=== PATIENT | female | born 1930 | race Caucasian/White ===

== ENCOUNTER 2017-04-27 14:09 | Inpatient (IN) | payer MEDICARE ==
--- NOTE | 2017-04-27 14:56 | ED Physician Chart ---
ED Chief Complaint/HPI - Patient Information Date Seen:: 04/27/17 Time Seen:: 14:45 Chief Complaint:: hematuria History of Present Illness:: Patient apparently noted to have hematuria at SNF. Patient is unaware of having hematuria although she is confused. Allergies:: Allergies Allergy/AdvReac Type Severity Reaction Status Date / Time No Known Allergies Allergy Verified 04/27/17 14:35 Vitals:: Vital Signs - 8 hr 04/27/17 14:22 Temp 98.5 F HR 74 RR 16 BP 120/54 O2 Sat % 92 Historian:: Patient Review:: Nurse's Note Reviewed, Transfer documents Reviewed ED Review of Systems - Review of Systems General/Constitutional: No fever, No chills Skin: No skin lesions Head: No headache Eyes: No loss of vision ENT: No earache, No nasal drainage Neck: No neck pain, No swelling Cardio Vascular: No chest pain, No palpitations, No PND, No orthopnea, No edema Pulmonary: No SOB, No cough GI: No nausea, No vomiting, No diarrhea G/U: Hematuria Musculoskeletal: No bone or joint pain, No back pain, No muscle pain Psychiatric: No prior psych history Hematopoietic: No bruising Allergic/Immuno: No urticaria Neurological: No syncope, No focal symptoms ED Past Medical History - Past Medical History Past Medical History: Other (s/p sepsis; Parkinson's disease; atrial fibrillation; decubitis both buttocks; hypothyroidism) Family History: Other (unavailable) Surgical History: other (unavailable) Psychiatricy History: None Medication: Reviewed Family Medical History - Family Member Mother History Unknown: Yes Ethnicity: Non- Living Status: ED Labs/Radiology/EKG Results - Lab Results Results: Laboratory Results - last 24 hr 04/27/17 04/27/17 04/27/17 14:30 14:30 15:15 WBC 7.6 RBC 4.41 Hgb 12.2 Hct 37.1 MCV 84.0 MCH 27.7 MCHC Differential 32.9 RDW 14.3 Plt Count 228 MPV 9.1 Neutrophils % 67.8 Lymphocytes % 22.1 Monocytes % 7.7 Eosinophils % 2.0 Basophils % 0.4 Sodium 134 L Potassium 3.7 Chloride 105 Carbon Dioxide 23.0 Anion Gap 9.7 BUN 26 H Creatinine 0.9 Est GFR ( Amer) TNP Est GFR (Non-Af Amer) TNP BUN/Creatinine Ratio 28.9 Glucose 153 H Calcium 9.3 Urine Source CATH Urine Color RED Urine Clarity BLOODY H Urine pH 7.0 Ur Specific [place] 1.015 Urine Protein >=300 Urine Glucose (UA) NEGATIVE Urine Ketones NEGATIVE Urine Blood LARGE H Urine Nitrate POSITIVE H Urine Bilirubin MODERATE H Urine Urobilinogen 1.0 Ur Leukocyte Esterase LARGE H Urine RBC >100 H Urine WBC >100 H Ur Epithelial Cells NONE SEEN Urine Bacteria MANY ED Septic Shock - . Is Septic Shock (SBP<90, OR Lactate>4 mmol\L) present?: No - <6hrs of presentation: Vital Signs: Vital Signs - 8 hr 04/27/17 14:22 Temp 98.5 F HR 74 RR 16 BP 120/54 O2 Sat % 92 ED Reassessment (Disposition) - Reassessment Reassessment Condition:: Unchanged - Diagnosis Diagnosis:: Urinary tract infection; hematuria - Patient Disposition Admitted to:: Med/Surg Spoke to:: Carroll Swan Admitting Medical Physician:: Carroll Swna Condition at Disposition:: Stable, Unchanged
[2017-04-27 15:02] LABS: % BASOPHILS 0.4 % (0.0-2.0); % LYMPHOCYTES 22.1 % (20.0-50.0); % MONOCYTES 7.7 % (2.0-10.0); % NEUTROPHILS 67.8 % (40.0-80.0); HEMATOCRIT 37.1 % (35.0-45.0); HEMOGLOBIN 12.2 gm/dL (11.7-16.1); MEAN CORPUSCULAR HEMOGLOBIN 27.7 pg (27.0-31.0); MEAN CORPUSCULAR HGB CONC 32.9 pg (28.0-36.0); MEAN PLATELET VOLUME 9.1 fl; NEUTROPHILE ABSOLUTE 5.1 Th/cmm (1.8-8.0); PLATELET COUNT 228 Th/cmm (150-400); RED BLOOD COUNT 4.41 Mil/cmm (3.80-5.20); RED CELL DISTRIBUTION WIDTH 14.3 % (11.5-20.0); WHITE BLOOD COUNT 7.6 Th/cmm (4.8-10.8)
[2017-04-27 15:09] LABS: ANION GAP 9.7 (7.0-16.0); BUN - UREA NITROGEN 26 mg/dL (7-25); BUN/CREATININE RATIO 28.9; CALCIUM SERUM 9.3 mg/dL (8.6-10.3); CHLORIDE 105 mEq/L (98-107); CREATININE - SERUM 0.9 mg/dL (0.6-1.2); GLUCOSE 153 mg/dL (70-105); POTASSIUM SERUM 3.7 mEq/L (3.5-5.1); SODIUM SERUM 134 mEq/L (136-145)
[2017-04-27 15:29] LABS: URINE BILIRUBIN MODERATE (NEGATIVE); URINE BLOOD LARGE (NEGATIVE); URINE GLUCOSE (UA) NEGATIVE (NEGATIVE); URINE KETONE NEGATIVE (NEGATIVE); URINE PROTEIN >=300 mg/dL (NEGATIVE)
[2017-04-27 15:41] LABS: URINE COLOR RED
[2017-04-27 15:42] LABS: URINE RBC >100 /hpf (0-5)
[2017-04-27 15:44] LABS: URINE BACTERIA MANY /hpf (NONE SEEN); URINE EPITHELIAL CELLS NONE SEEN /lpf (FEW); URINE WBC >100 /hpf (0-5)
[2017-04-27] MEDS ORDERED: Sodium Chloride 0.9% 1,000 ML IV ONE (17:02)
[2017-04-27] MEDS ORDERED: cefTRIAXone 1 GM in Sodium Chloride 0.9% 50 ML IV ONE (17:02)
[2017-04-27] MEDS: cefTRIAXone 1 GM in Sodium Chloride 0.9% 50 ML IV SCH (19:30)
[2017-04-27] MEDS: Sodium Chloride 0.9% 1,000 ML IV SCH (22:00)
[2017-04-27 23:38] VITALS: BP 142/79
[2017-04-28 07:31] LABS: % BASOPHILS 0.6 % (0.0-2.0); % EOSINOPHILS 2.1 % (0.0-5.0); % LYMPHOCYTES 16.7 % (20.0-50.0); % NEUTROPHILS 70.6 % (40.0-80.0); HEMATOCRIT 38.5 % (35.0-45.0); HEMOGLOBIN 12.9 gm/dL (11.7-16.1); MEAN CELL VOLUME 83.5 fl (81-100); MEAN CORPUSCULAR HGB CONC 33.6 pg (28.0-36.0); MEAN PLATELET VOLUME 8.4 fl; NEUTROPHILE ABSOLUTE 5.1 Th/cmm (1.8-8.0); PLATELET COUNT 241 Th/cmm (150-400); RED BLOOD COUNT 4.61 Mil/cmm (3.80-5.20); RED CELL DISTRIBUTION WIDTH 14.1 % (11.5-20.0); WHITE BLOOD COUNT 7.2 Th/cmm (4.8-10.8)
[2017-04-28 08:05] LABS: ALB/GLOB RATIO 1.1 (1.0-1.8); ALKALINE PHOSPHATASE 101 U/L (34-104); ANION GAP 9.8 (7.0-16.0); BILIRUBIN,TOTAL 0.6 mg/dL (0.3-1.0); BUN - UREA NITROGEN 19 mg/dL (7-25); BUN/CREATININE RATIO 27.1; CALCIUM SERUM 9.2 mg/dL (8.6-10.3); CHLORIDE 109 mEq/L (98-107); CREATININE - SERUM 0.7 mg/dL (0.6-1.2); GLUCOSE 83 mg/dL (70-105); POTASSIUM SERUM 3.8 mEq/L (3.5-5.1); SGOT 22 U/L (13-39); SGPT/ALT 16 U/L (7-52); SODIUM SERUM 138 mEq/L (136-145)
[2017-04-28] MEDS: Levothyroxine 0.025 Mg Tab PO SCH (08:15)
[2017-04-28] MEDS: Ferrous Sulfate 325 MG TAB PO SCH (08:15)
[2017-04-28] MEDS: Tolterodine Tartrate 4 mg ER Cap PO SCH (08:15)
[2017-04-28] MEDS: Multivitamin w/ Minerals Tab PO SCH (08:15)
--- NOTE | 2017-04-28 08:48 | History and Physical ---
History of Present Illness - HPI Chief Complaint: Hematuria HPI: This is a patient from a SNF and I received a call from SNF stating that patient was having hematuria, order to transfered to ER was given. Vital Signs: Last Vital Signs Temp 98.0 F 04/28/17 04:00 Pulse 62 04/28/17 04:00 Resp 18 04/28/17 04:00 BP 162/71 04/28/17 04:00 Pulse Ox 98 04/28/17 04:00 Past Medical History Cardiovascular: Report: AFIB, CAD Pulmonary: Report: No Pertinent Hx FIELD SERVICES ANALYST: Report: Dementia GI: Report: No Pertinent Hx Psych: Report: Depression, Schizophrenia Musculoskeletal: Report: Muscle Atrophy, Weakness Rheumatologic: Report: No pertinent Hx Infectious Disease: Report: Other (Frequent UTI) Renal/: Report: UTI, Hematuria Endocrine: Report: Hypothyroidism Dermatology: Report: Other (Few decubitus ulcer) - Past Surgical History Past Surgical History: No pertinent Hx Family Medical History - Family Member Mother History Unknown: Yes Ethnicity: Non- Living Status: Social History Smoke: No Alcohol: None Drugs: None Lives: [facility] Domestic Violence: Negative - Medications Home Medications: Home Medication Medication Instructions Recorded Type Acetaminophen [Tylenol 500 mg PO Q6HR PRN 04/27/17 History 650mg/20.3mL Suspension] Apixaban [Eliquis] 2.5 mg PO BID 04/27/17 History Carbidopa/Levodopa 50/200 mg 1 tab PO TID 04/27/17 History [Sinemet CR 50mg-200mg] Cranberry 400 mg PO DAILY 04/27/17 History Dextran 70/Hypromellose/Pf 1 each OP BID PRN 04/27/17 History [Artificial Tears Drops] Docusate Sodium [Colace] 100 mg PO TID 04/27/17 History Duloxetine HCl [Cymbalta] 20 mg PO DAILY 04/27/17 History Ferrous Sulfate [Iron] 1 tab PO DAILY 04/27/17 History Levothyroxine [Synthroid] 25 mcg PO QAM 04/27/17 History Memantine HCl [Namenda Xr] 28 mg PO HS 04/27/17 History Memantine HCl [Namenda Xr] 28 mg PO HS 04/27/17 History Multivitamin-Min/Iron/FA/Vit K 1 tab PO DAILY 04/27/17 History [Multi-Day Plus Minerals Tablet] Pramipexole Di-HCl [Mirapex] 0.125 mg PO HS 04/27/17 History Rivastigmine [Exelon] 13.3 mg TD DAILY 04/27/17 History Tolterodine Tartrate [Detrol LA] 4 mg PO DAILY 04/27/17 History - Allergies Allergies/Adverse Reactions: Allergies Allergy/AdvReac Type Severity Reaction Status Date / Time No Known Allergies Allergy Verified 04/27/17 14:35 Review of Systems - Review of Systems Constitutional: Report: Weakness Eyes: Report: No Significant ENT: Report: No Significant Respiratory: Report: No Significant Cardiovascular: Report: No Significant Gastrointestinal: Report: No Significant Genitourinary: Report: Dysuria, Hematuria Musculoskeletal: Report: No Significant Skin: Report: Other (Decubit ulcers) Neurological: Report: Weakness Physical Exam - Physical Exam HEENT: Report: Ears Nose Throat within normal limits Neck: Report: Within normal limits Cardiovascular Systems: Report: Regular, Rate and Rhythm Respiratory: Report: Breath Sounds are within normal limits Abdomen: Report: Non-tender to palpation Back: Report: Inspection of back is within normal limits. Extremities: Report: Non-tender to palpation., No pedal edema was noted on inspection Skin: Report: Warm, Dry Neuro/Psych: Report: Depressed affect - Lab Results All Lab Results last 24 hours: Laboratory Last Values WBC 7.2 Th/cmm (4.8-10.8) 04/28/17 07:10 RBC 4.61 Mil/cmm (3.80-5.20) 04/28/17 07:10 Hgb 12.9 gm/dL (11.7-16.1) 04/28/17 07:10 Hct 38.5 % (35.0-45.0) 04/28/17 07:10 MCV 83.5 fl (81-100) 04/28/17 07:10 MCH 28.0 pg (27.0-31.0) 04/28/17 07:10 MCHC Differential 33.6 pg (28.0-36.0) 04/28/17 07:10 RDW 14.1 % (11.5-20.0) 04/28/17 07:10 Plt Count 241 Th/cmm (150-400) 04/28/17 07:10 MPV 8.4 fl 04/28/17 07:10 Neutrophils % 70.6 % (40.0-80.0) 04/28/17 07:10 Lymphocytes % 16.7 % (20.0-50.0) L 04/28/17 07:10 Monocytes % 10.0 % (2.0-10.0) 04/28/17 07:10 Eosinophils % 2.1 % (0.0-5.0) 04/28/17 07:10 Basophils % 0.6 % (0.0-2.0) 04/28/17 07:10 Sodium 138 mEq/L (136-145) 04/28/17 07:10 Potassium 3.8 mEq/L (3.5-5.1) 04/28/17 07:10 Chloride 109 mEq/L (98-107) H 04/28/17 07:10 Carbon Dioxide 23.0 mEq/L (21.0-31.0) 04/28/17 07:10 Anion Gap 9.8 (7.0-16.0) 04/28/17 07:10 BUN 19 mg/dL (7-25) 04/28/17 07:10 Creatinine 0.7 mg/dL (0.6-1.2) 04/28/17 07:10 Est GFR ( Amer) TNP 04/28/17 07:10 Est GFR (Non-Af Amer) TNP 04/28/17 07:10 BUN/Creatinine Ratio 27.1 04/28/17 07:10 Glucose 83 mg/dL (70-105) 04/28/17 07:10 Calcium 9.2 mg/dL (8.6-10.3) 04/28/17 07:10 Total Bilirubin 0.6 mg/dL (0.3-1.0) 04/28/17 07:10 AST 22 U/L (13-39) 04/28/17 07:10 ALT 16 U/L (7-52) 04/28/17 07:10 Alkaline Phosphatase 101 U/L (34-104) 04/28/17 07:10 Total Protein 6.7 gm/dL (6.0-8.3) 04/28/17 07:10 Albumin 3.5 gm/dL (3.7-5.3) L 04/28/17 07:10 Globulin 3.2 gm/dL 04/28/17 07:10 Albumin/Globulin Ratio 1.1 (1.0-1.8) 04/28/17 07:10 Urine Source CATH 04/27/17 15:15 Urine Color RED 04/27/17 15:15 Urine Clarity BLOODY (CLEAR) H 04/27/17 15:15 Urine pH 7.0 (4.6 - 8.0) 04/27/17 15:15 Ur Specific [place] 1.015 (1.005-1.030) 04/27/17 15:15 Urine Protein >=300 mg/dL (NEGATIVE) 04/27/17 15:15 Urine Glucose (UA) NEGATIVE mg/dL (NEGATIVE) 04/27/17 15:15 Urine Ketones NEGATIVE mg/dL (NEGATIVE) 04/27/17 15:15 Urine Blood LARGE (NEGATIVE) H 04/27/17 15:15 Urine Nitrate POSITIVE (NEGATIVE) H 04/27/17 15:15 Urine Bilirubin MODERATE (NEGATIVE) H 04/27/17 15:15 Urine Urobilinogen 1.0 E.U./dL (0.2 - 1.0) 04/27/17 15:15 Ur Leukocyte Esterase LARGE (NEGATIVE) H 04/27/17 15:15 Urine RBC >100 /hpf (0-5) H 04/27/17 15:15 Urine WBC >100 /hpf (0-5) H 04/27/17 15:15 Ur Epithelial Cells NONE SEEN /lpf (FEW) 04/27/17 15:15 Urine Bacteria MANY /hpf (NONE SEEN) 04/27/17 15:15 Laboratory Results - last 24 hr 04/28/17 04/28/17 07:10 07:10 WBC 7.2 RBC 4.61 Hgb 12.9 Hct 38.5 MCV 83.5 MCH 28.0 MCHC Differential 33.6 RDW 14.1 Plt Count 241 MPV 8.4 Neutrophils % 70.6 Lymphocytes % 16.7 L Monocytes % 10.0 Eosinophils % 2.1 Basophils % 0.6 Sodium 138 Potassium 3.8 Chloride 109 H Carbon Dioxide 23.0 Anion Gap 9.8 BUN 19 Creatinine 0.7 Est GFR ( Amer) TNP Est GFR (Non-Af Amer) TNP BUN/Creatinine Ratio 27.1 Glucose 83 Calcium 9.2 Total Bilirubin 0.6 AST 22 ALT 16 Alkaline Phosphatase 101 Total Protein 6.7 Albumin 3.5 L Globulin 3.2 Albumin/Globulin Ratio 1.1 - Assessment Assessment: Patient is awake, alert, calm in no acute distress. Dx: UTI, Hematuria, A-fib, Hypothyroidism, Dementia, PMHX of DVT, Parkinson. - Plan Plan: Patient in rocephin, continue with all SNF meds. PT will be requested.
[2017-04-28] MEDS ORDERED: Non-Formulary Item 1 EA (Apixaban [Eliquis] 2.5 MG) PO SCH (09:00)
[2017-04-28] MEDS ORDERED: RIVASTIGMINE 13.3 MG TD SCH (09:00)
[2017-04-28] MEDS: Carbidopa/Levodopa 50/200 mg 1 TER TER PO SCH ×3 (09:00→21:21)
[2017-04-28] MEDS ORDERED: Non-Formulary Item 1 EA (Duloxetine Hcl [Cymbalta] 20 MG) PO SCH (09:00)
[2017-04-28] MEDS: Sodium Chloride 0.9% 1,000 ML IV SCH (10:43)
[2017-04-28] MEDS ORDERED: VTE Chemical Prophylaxis Screen/Admission MC PRN (13:38)
[2017-04-28] MEDS: Enoxaparin 40 mg/0.4 mL 0.4mL Syr SUBQ SCH (16:56)
[2017-04-28] MEDS: cefTRIAXone 1 GM in Sodium Chloride 0.9% 50 ML IV SCH (18:28)
[2017-04-29] MEDS: Sodium Chloride 0.9% 1,000 ML IV SCH ×2 (01:28→13:21)
[2017-04-29 05:45] LABS: % BASOPHILS 0.4 % (0.0-2.0); % EOSINOPHILS 2.6 % (0.0-5.0); % LYMPHOCYTES 20.3 % (20.0-50.0); % MONOCYTES 10.6 % (2.0-10.0); % NEUTROPHILS 66.1 % (40.0-80.0); HEMOGLOBIN 11.5 gm/dL (11.7-16.1); MEAN CELL VOLUME 83.7 fl (81-100); MEAN CORPUSCULAR HEMOGLOBIN 28.5 pg (27.0-31.0); MEAN PLATELET VOLUME 9.1 fl; NEUTROPHILE ABSOLUTE 3.7 Th/cmm (1.8-8.0); PLATELET COUNT 204 Th/cmm (150-400); RED BLOOD COUNT 4.05 Mil/cmm (3.80-5.20); RED CELL DISTRIBUTION WIDTH 13.9 % (11.5-20.0)
[2017-04-29 06:04] LABS: ALB/GLOB RATIO 1.1 (1.0-1.8); ALKALINE PHOSPHATASE 86 U/L (34-104); ANION GAP 8.4 (7.0-16.0); BILIRUBIN,TOTAL 0.5 mg/dL (0.3-1.0); BUN - UREA NITROGEN 16 mg/dL (7-25); CALCIUM SERUM 8.7 mg/dL (8.6-10.3); CARBON DIOXIDE 23.1 mEq/L (21.0-31.0); CHLORIDE 110 mEq/L (98-107); CREATININE - SERUM 0.8 mg/dL (0.6-1.2); GLUCOSE 88 mg/dL (70-105); POTASSIUM SERUM 3.5 mEq/L (3.5-5.1); SGOT 18 U/L (13-39); SGPT/ALT 3 U/L (7-52); SODIUM SERUM 138 mEq/L (136-145)
[2017-04-29 06:05] LABS: HEMATOCRIT 33.9 % (35.0-45.0); WHITE BLOOD COUNT 5.5 Th/cmm (4.8-10.8)
[2017-04-29] MEDS: Rivastigmine 9.5 mg/24 hr Tdm TD SCH (08:55)
[2017-04-29] MEDS: Carbidopa/Levodopa 50/200 mg 1 TER TER PO SCH ×3 (08:56→21:04)
[2017-04-29] MEDS: Levothyroxine 0.025 Mg Tab PO SCH (08:56)
[2017-04-29] MEDS: Tolterodine Tartrate 4 mg ER Cap PO SCH (08:56)
[2017-04-29] MEDS: Ferrous Sulfate 325 MG TAB PO SCH (08:56)
--- NOTE | 2017-04-29 08:56 | General Progress Note ---
Subjective - Review of Systems Service Date: 04/29/17 Subjective: I am better Objective - Results Result Diagrams: 04/29/17 05:10 04/29/17 05:10 Recent Labs: Laboratory Last Values WBC 5.5 Th/cmm (4.8-10.8) D 04/29/17 05:10 RBC 4.05 Mil/cmm (3.80-5.20) 04/29/17 05:10 Hgb 11.5 gm/dL (11.7-16.1) L 04/29/17 05:10 Hct 33.9 % (35.0-45.0) L D 04/29/17 05:10 MCV 83.7 fl (81-100) 04/29/17 05:10 MCH 28.5 pg (27.0-31.0) 04/29/17 05:10 MCHC Differential 34.0 pg (28.0-36.0) 04/29/17 05:10 RDW 13.9 % (11.5-20.0) 04/29/17 05:10 Plt Count 204 Th/cmm (150-400) 04/29/17 05:10 MPV 9.1 fl 04/29/17 05:10 Neutrophils % 66.1 % (40.0-80.0) 04/29/17 05:10 Lymphocytes % 20.3 % (20.0-50.0) 04/29/17 05:10 Monocytes % 10.6 % (2.0-10.0) H 04/29/17 05:10 Eosinophils % 2.6 % (0.0-5.0) 04/29/17 05:10 Basophils % 0.4 % (0.0-2.0) 04/29/17 05:10 Sodium 138 mEq/L (136-145) 04/29/17 05:10 Potassium 3.5 mEq/L (3.5-5.1) 04/29/17 05:10 Chloride 110 mEq/L (98-107) H 04/29/17 05:10 Carbon Dioxide 23.1 mEq/L (21.0-31.0) 04/29/17 05:10 Anion Gap 8.4 (7.0-16.0) 04/29/17 05:10 BUN 16 mg/dL (7-25) 04/29/17 05:10 Creatinine 0.8 mg/dL (0.6-1.2) 04/29/17 05:10 Est GFR ( Amer) TNP 04/29/17 05:10 Est GFR (Non-Af Amer) TNP 04/29/17 05:10 BUN/Creatinine Ratio 20.0 04/29/17 05:10 Glucose 88 mg/dL (70-105) 04/29/17 05:10 Calcium 8.7 mg/dL (8.6-10.3) 04/29/17 05:10 Total Bilirubin 0.5 mg/dL (0.3-1.0) 04/29/17 05:10 AST 18 U/L (13-39) 04/29/17 05:10 ALT 3 U/L (7-52) L 04/29/17 05:10 Alkaline Phosphatase 86 U/L (34-104) 04/29/17 05:10 Total Protein 5.9 gm/dL (6.0-8.3) L 04/29/17 05:10 Albumin 3.1 gm/dL (3.7-5.3) L 04/29/17 05:10 Globulin 2.8 gm/dL 04/29/17 05:10 Albumin/Globulin Ratio 1.1 (1.0-1.8) 04/29/17 05:10 TSH 2.19 uIU/ml (0.34-5.60) 04/28/17 07:10 Urine Source CATH 04/27/17 15:15 Urine Color RED 04/27/17 15:15 Urine Clarity BLOODY (CLEAR) H 04/27/17 15:15 Urine pH 7.0 (4.6 - 8.0) 04/27/17 15:15 Ur Specific [place] 1.015 (1.005-1.030) 04/27/17 15:15 Urine Protein >=300 mg/dL (NEGATIVE) 04/27/17 15:15 Urine Glucose (UA) NEGATIVE mg/dL (NEGATIVE) 04/27/17 15:15 Urine Ketones NEGATIVE mg/dL (NEGATIVE) 04/27/17 15:15 Urine Blood LARGE (NEGATIVE) H 04/27/17 15:15 Urine Nitrate POSITIVE (NEGATIVE) H 04/27/17 15:15 Urine Bilirubin MODERATE (NEGATIVE) H 04/27/17 15:15 Urine Urobilinogen 1.0 E.U./dL (0.2 - 1.0) 04/27/17 15:15 Ur Leukocyte Esterase LARGE (NEGATIVE) H 04/27/17 15:15 Urine RBC >100 /hpf (0-5) H 04/27/17 15:15 Urine WBC >100 /hpf (0-5) H 04/27/17 15:15 Ur Epithelial Cells NONE SEEN /lpf (FEW) 04/27/17 15:15 Urine Bacteria MANY /hpf (NONE SEEN) 04/27/17 15:15 - Physical Exam Vitals and I&O: Vital Signs Temp 96.8 F 04/29/17 08:00 Pulse 68 04/29/17 08:00 Resp 16 04/29/17 08:20 BP 182/93 04/29/17 08:00 Pulse Ox 96 04/29/17 08:00 Intake & Output 04/28/17 04/29/17 04/29/17 18:59 06:59 18:59 Intake Total 1353.75 1120 Output Total 900 550 Balance 453.75 570 Weight (lbs) 70.76 kg 70.76 kg Intake: Intake, IV Amount 953.75 1000 Sodium Chloride 0.9% 1, 953.75 1000 000 ml @ 75 mls/hr IV . [id number] [facility] Rx#:[id number] Oral 400 120 Output: Urine 900 550 Active Medications: Current Medications Acetaminophen (Tylenol 650mg/20.3ml Suspension) 500 mg PO Q6HR PRN PRN Reason: Pain (Mild) Stop: 06/26/17 22:32 Carbidopa/Levodopa (Sinemet Cr 50mg-200mg) 1 ter PO TID [facility] Stop: 06/27/17 08:59 Last Admin: 04/28/17 21:21 Dose: 1 ter Docusate Sodium (Colace) 100 mg PO TID [facility] Stop: 06/27/17 08:59 Last Admin: 04/28/17 21:21 Dose: 100 mg Enoxaparin Sodium (Lovenox) 40 mg SUBQ DAILY [facility] Stop: 06/27/17 16:59 Last Admin: 04/28/17 16:56 Dose: 40 mg Ferrous Sulfate (Iron) 325 mg PO DAILY [facility] Stop: 06/27/17 08:59 Last Admin: 04/28/17 08:15 Dose: 325 mg Ceftriaxone Sodium 1 gm/ (Sodium Chloride) 50 mls @ 100 mls/hr IV Q24HR [facility] Stop: 06/26/17 18:41 Last Admin: 04/28/17 18:28 Dose: 100 mls/hr Sodium Chloride (Nacl 0.9%) 1,000 mls @ 75 mls/hr IV .[id number] [facility] Stop: 06/26/17 18:41 Last Admin: 04/29/17 01:28 Dose: 75 mls/hr Levothyroxine Sodium (Synthroid) 0.025 mg PO QAM [facility] Stop: 06/27/17 08:59 Last Admin: 04/28/17 08:15 Dose: 0.025 mg Memantine (Namenda) 10 mg PO BID [facility] Stop: 06/27/17 08:59 Last Admin: 04/28/17 16:56 Dose: 10 mg Miscellaneous (Vte Chemical Prophylaxis Screen/ Admission) 1 ea [facility] PRN PRN PRN Reason: PROTOCOL Stop: 06/27/17 13:37 Pramipexole Dihydrochloride (Mirapex) 0.125 mg PO HS [facility] Stop: 06/26/17 22:44 Last Admin: 04/28/17 21:21 Dose: 0.125 mg Rivastigmine (Exelon 9.5 Mg/24 Hr Tdm) 1 patch TD DAILY [facility] Stop: 06/28/17 08:59 Tolterodine Tartrate (Detrol La) 4 mg PO DAILY [facility] Stop: 06/27/17 08:59 Last Admin: 04/28/17 08:15 Dose: 4 mg General: Alert, Cooperative, Other (Confused) HEENT: Atraumatic Neck: Supple Cardiovascular: Regular rate Lungs: Clear to auscultation Abdomen: Bowel sounds, Soft Neurological: Other (Unstable gait) Skin: Other (Warm and dry) Psych/Mental Status: Other (Confused) Assessment/Plan - Assessment Assessment: Patient is awake, alert, calm in no acute distress. Urine with some visible blood. Dx: UTI, Hematuria, A-fib, Hypothyroidism, Dementia, PMHX of DVT, Parkinson. - Plan Plan: Patient in rocepcon, continue with all SNF meds. PT will be requested. Awaiting Abdominal US result.
[2017-04-29] MEDS: Multivitamin w/ Minerals Tab PO SCH (08:57)
--- NOTE | 2017-04-29 09:04 | Diagnostic Imaging Report ---
Exam: Ultrasound summation abdomen. HISTORY: Hematuria. Findings Real-time ultrasound summation of abdomen was performed in multiple planes. No prior studies available comparison. The study demonstrates normal echogenicity liver parenchyma There is evidence for multiple calculi in gallbladder consistent with cholelithiasis. The common bile duct measures 5 mm. Pancreas poorly visualized. The kidneys demonstrate no evidence of obstructive uropathy or nephrolithiasis. Right kidney measures 9.0 x 4.5 x 5.2 cm diameter. The left kidney is atrophic measuring 8.3 x 5.4 x 4.9 cm diameter. The spleen is intact. No free fluid is noted. The study is limited due to large amount of intra-abdominal bowel gas. IMPRESSION 1. Cholelithiasis 2. Left renal atrophy 3. No evidence of obstructive uropathy or nephrolithiasis.
[2017-04-29] MEDS: Enoxaparin 40 mg/0.4 mL 0.4mL Syr SUBQ SCH (09:23)
[2017-04-29] MEDS: cefTRIAXone 1 GM in Sodium Chloride 0.9% 50 ML IV SCH (17:50)
[2017-04-30] MEDS: Sodium Chloride 0.9% 1,000 ML IV SCH (02:24)
[2017-04-30 06:08] LABS: % BASOPHILS 0.6 % (0.0-2.0); % EOSINOPHILS 3.1 % (0.0-5.0); % LYMPHOCYTES 16.1 % (20.0-50.0); % MONOCYTES 10.4 % (2.0-10.0); % NEUTROPHILS 69.8 % (40.0-80.0); HEMATOCRIT 33.2 % (35.0-45.0); MEAN CELL VOLUME 84.3 fl (81-100); MEAN CORPUSCULAR HGB CONC 33.2 pg (28.0-36.0); MEAN PLATELET VOLUME 8.4 fl; NEUTROPHILE ABSOLUTE 4.2 Th/cmm (1.8-8.0); PLATELET COUNT 208 Th/cmm (150-400); RED BLOOD COUNT 3.93 Mil/cmm (3.80-5.20); RED CELL DISTRIBUTION WIDTH 14.2 % (11.5-20.0); WHITE BLOOD COUNT 5.9 Th/cmm (4.8-10.8)
[2017-04-30 06:41] LABS: ALB/GLOB RATIO 1.2 (1.0-1.8); ALKALINE PHOSPHATASE 81 U/L (34-104); ANION GAP 8.2 (7.0-16.0); BILIRUBIN,TOTAL 0.4 mg/dL (0.3-1.0); BUN - UREA NITROGEN 16 mg/dL (7-25); CALCIUM SERUM 8.6 mg/dL (8.6-10.3); CARBON DIOXIDE 20.1 mEq/L (21.0-31.0); CHLORIDE 109 mEq/L (98-107); CREATININE - SERUM 0.8 mg/dL (0.6-1.2); GLUCOSE 90 mg/dL (70-105); POTASSIUM SERUM 3.3 mEq/L (3.5-5.1); SGOT 17 U/L (13-39); SGPT/ALT < 3 U/L (7-52); SODIUM SERUM 134 mEq/L (136-145)
[2017-04-30] MEDS: Carbidopa/Levodopa 50/200 mg 1 TER TER PO SCH (08:27)
[2017-04-30] MEDS: Tolterodine Tartrate 4 mg ER Cap PO SCH (08:28)
[2017-04-30] MEDS: Rivastigmine 9.5 mg/24 hr Tdm TD SCH (08:28)
[2017-04-30] MEDS: Ferrous Sulfate 325 MG TAB PO SCH (08:28)
[2017-04-30] MEDS: Levothyroxine 0.025 Mg Tab PO SCH (08:28)
[2017-04-30] MEDS: Multivitamin w/ Minerals Tab PO SCH (08:28)
--- NOTE | 2017-04-30 09:51 | Discharge Summary ---
General Discharge Summary - Discharge Summary Date of Admission: 04/27/17 Admitting Diagnosis: UTI, Hematuria,A-Fib, Hypothyroidism, Dementia, Parkinson Discharge Date: 04/30/17 Discharge Diagnosis: UTI, Hematuria, A-fib, Hypothyroidism, Dementia, Parkinson Laboratory Findings: Laboratory Tests 04/28/17 04/28/17 04/28/17 07:10 07:10 07:10 WBC 7.2 RBC 4.61 Hgb 12.9 Hct 38.5 MCV 83.5 MCH 28.0 MCHC Differential 33.6 RDW 14.1 Plt Count 241 MPV 8.4 Neutrophils % 70.6 Lymphocytes % 16.7 L Monocytes % 10.0 Eosinophils % 2.1 Basophils % 0.6 Sodium 138 Potassium 3.8 Chloride 109 H Carbon Dioxide 23.0 Anion Gap 9.8 BUN 19 Creatinine 0.7 Est GFR ( Amer) TNP Est GFR (Non-Af Amer) TNP BUN/Creatinine Ratio 27.1 Glucose 83 Calcium 9.2 Total Bilirubin 0.6 AST 22 ALT 16 Alkaline Phosphatase 101 Total Protein 6.7 Albumin 3.5 L Globulin 3.2 Albumin/Globulin Ratio 1.1 TSH 2.19 04/29/17 04/29/17 04/30/17 05:10 05:10 05:39 WBC 5.5 D 5.9 RBC 4.05 3.93 Hgb 11.5 L 11.0 L Hct 33.9 L D 33.2 L MCV 83.7 84.3 MCH 28.5 28.0 MCHC Differential 34.0 33.2 RDW 13.9 14.2 Plt Count 204 208 MPV 9.1 8.4 Neutrophils % 66.1 69.8 Lymphocytes % 20.3 16.1 L Monocytes % 10.6 H 10.4 H Eosinophils % 2.6 3.1 Basophils % 0.4 0.6 Sodium 138 Potassium 3.5 Chloride 110 H Carbon Dioxide 23.1 Anion Gap 8.4 BUN 16 Creatinine 0.8 Est GFR ( Amer) TNP Est GFR (Non-Af Amer) TNP BUN/Creatinine Ratio 20.0 Glucose 88 Calcium 8.7 Total Bilirubin 0.5 AST 18 ALT 3 L Alkaline Phosphatase 86 Total Protein 5.9 L Albumin 3.1 L Globulin 2.8 Albumin/Globulin Ratio 1.1 TSH 04/30/17 05:39 WBC RBC Hgb Hct MCV MCH MCHC Differential RDW Plt Count MPV Neutrophils % Lymphocytes % Monocytes % Eosinophils % Basophils % Sodium 134 L Potassium 3.3 L Chloride 109 H Carbon Dioxide 20.1 L Anion Gap 8.2 BUN 16 Creatinine 0.8 Est GFR ( Amer) TNP Est GFR (Non-Af Amer) TNP BUN/Creatinine Ratio 20.0 Glucose 90 Calcium 8.6 Total Bilirubin 0.4 AST 17 ALT < 3 L Alkaline Phosphatase 81 Total Protein 5.8 L Albumin 3.1 L Globulin 2.7 Albumin/Globulin Ratio 1.2 TSH Hospital Course: Patient was admitted to med/Surg, she was started with IV NS, Ceftriaxone and continue with SNF meds, With this treatment she improved. Condition at Discharge: Stable Disposition: Discharge/Transfered to SNF Home Medications: Home Medication Medication Instructions Recorded Type Acetaminophen [Tylenol 500 mg PO Q6HR PRN 04/27/17 History 650mg/20.3mL Suspension] Apixaban [Eliquis] 2.5 mg PO BID 04/27/17 History Carbidopa/Levodopa 50/200 mg 1 tab PO TID 04/27/17 History [Sinemet CR 50mg-200mg] Cranberry 400 mg PO DAILY 04/27/17 History Dextran 70/Hypromellose/Pf 1 each OP BID PRN 04/27/17 History [Artificial Tears Drops] Docusate Sodium [Colace] 100 mg PO TID 04/27/17 History Duloxetine HCl [Cymbalta] 20 mg PO DAILY 04/27/17 History Ferrous Sulfate [Iron] 1 tab PO DAILY 04/27/17 History Levothyroxine [Synthroid] 25 mcg PO QAM 04/27/17 History Memantine HCl [Namenda Xr] 28 mg PO HS 04/27/17 History Memantine HCl [Namenda Xr] 28 mg PO HS 04/27/17 History Multivitamin-Min/Iron/FA/Vit K 1 tab PO DAILY 04/27/17 History [Multi-Day Plus Minerals Tablet] Pramipexole Di-HCl [Mirapex] 0.125 mg PO HS 04/27/17 History Rivastigmine [Exelon] 13.3 mg TD DAILY 04/27/17 History Tolterodine Tartrate [Detrol LA] 4 mg PO DAILY 04/27/17 History Inpatient Medications: Current Medications Acetaminophen (Tylenol 650mg/20.3ml Suspension) 500 mg PO Q6HR PRN PRN Reason: Pain (Mild) Stop: 06/26/17 22:32 Last Admin: 04/29/17 21:41 Dose: 500 mg Carbidopa/Levodopa (Sinemet Cr 50mg-200mg) 1 ter PO TID [facility] Stop: 06/27/17 08:59 Last Admin: 04/30/17 08:27 Dose: 1 ter Docusate Sodium (Colace) 100 mg PO TID [facility] Stop: 06/27/17 08:59 Last Admin: 04/30/17 08:28 Dose: 100 mg Enoxaparin Sodium (Lovenox) 40 mg SUBQ DAILY [facility] Stop: 06/27/17 16:59 Last Admin: 04/29/17 09:23 Dose: Not Given Ferrous Sulfate (Iron) 325 mg PO DAILY [facility] Stop: 06/27/17 08:59 Last Admin: 04/30/17 08:28 Dose: 325 mg Ceftriaxone Sodium 1 gm/ (Sodium Chloride) 50 mls @ 100 mls/hr IV Q24HR [facility] Stop: 06/26/17 18:41 Last Infusion: 04/29/17 18:35 Dose: Infused Sodium Chloride (Nacl 0.9%) 1,000 mls @ 75 mls/hr IV .[id number] [facility]U Stop: 06/26/17 18:41 Last Admin: 04/30/17 02:24 Dose: 75 mls/hr Levothyroxine Sodium (Synthroid) 0.025 mg PO QAM [facility] Stop: 06/27/17 08:59 Last Admin: 04/30/17 08:28 Dose: 0.025 mg Memantine (Namenda) 10 mg PO BID [facility] Stop: 06/27/17 08:59 Last Admin: 04/30/17 08:28 Dose: 10 mg Miscellaneous (Vte Chemical Prophylaxis Screen/ Admission) 1 ea MC PRN PRN PRN Reason: PROTOCOL Stop: 06/27/17 13:37 Pramipexole Dihydrochloride (Mirapex) 0.125 mg PO HS [facility] Stop: 06/26/17 22:44 Last Admin: 04/29/17 21:04 Dose: 0.125 mg Rivastigmine (Exelon 9.5 Mg/24 Hr Tdm) 1 patch TD DAILY [facility] Stop: 06/28/17 08:59 Last Admin: 04/30/17 08:28 Dose: 1 patch Tolterodine Tartrate (Detrol La) 4 mg PO DAILY [facility] Stop: 06/27/17 08:59 Last Admin: 04/30/17 08:28 Dose: 4 mg Activity: As Tolerated Discharge Diet: Regular Consults and Follow-Up: Carroll Swan [Primary Care Provider] - Consulting Speciality: Other (PCP)
[2017-04-30] MEDS: Enoxaparin 40 mg/0.4 mL 0.4mL Syr SUBQ SCH (10:08)
[2017-04-30] MEDS ORDERED: Potassium Chloride 20 mEq ER Tab PO SCH (10:15)
--- NOTE | 2017-05-03 03:41 | Admit Criteria Form ---
Admit Criteria Forms - Admit Criteria Diagnosis: URINARY COMPLICATIONS Clinical Indications for Inpatient Care (Place 'X' for any and all applicable criteria): Ongoing inpatient care may be needed for Urinary complications with 1 or more of the following: [ ]I. Reduced urine output (eg, despite adequate hydration) [ ]II. Renal failure. (Also use Renal Failure: Common Complications and Conditions as appropriate) [ ]III. Urinary retention requiring drainage or surgery(19)(20)(21)(33)(34) [ ]IV. Postobstructive diuresis requiring close monitoring of urine output and intravenous compensation for excessive fluid losses(35) [X ]V. Urinary tract infection requiring inpatient care as indicated by ANY ONE of the following(8)(19)(20): [ ]a) Hemodynamic instability [ ]b) Severe symptoms (eg, high fever, severe pain) [ ]c) Vomiting or dehydration requiring ongoing inpatient care [X ]d) IV antibiotic needs that cannot be managed at lower level of care [ ]e) Obstruction of collecting system by stone or tumor Extended stay beyond goal length of stay for primary condition may be needed until ALL of the following are present(3)(4)(5)(8): [ ]a) Renal function (creatinine) at baseline, or daily decreases in creatinine consistent with renal function return [ ]b) Voiding adequately or with urinary catheter or percutaneous suprapubic tube and management regimen in place that is performable at lower level of care. [ ]c) Urine output adequate [ ]d) Fever absent or resolving [ ]e) Infection absent or treatable at next level of care The original [employer] content created by [employer] has been revised. The portions of the content which have been revised are identified through the use of italic text or in bold, and [facility] has neither reviewed nor approved the modified material. All other unmodified content is copyright [employer] [facility] Please see references footnoted in the original [employer] [facility] edition 2017 Admit Criteria Met?: Yes
== END 2017-04-30 12:56 | disposition home or self-care (01) | DRG 690 ==
LOC: ER 14:09 → MSI 17:08
PROVIDERS: ADMIT General Practice; ATTEND General Practice
DX: N39.0 Urinary tract infection, site not specified (principal); G20 Parkinson's disease; F03.90 Unspecified dementia, unspecified severity, without behavioral disturbance, psychotic disturbance, mood disturbance, and anxiety; I48.91 Unspecified atrial fibrillation; E03.9 Hypothyroidism, unspecified; R31.9 Hematuria, unspecified; I25.10 Atherosclerotic heart disease of native coronary artery without angina pectoris; F20.9 Schizophrenia, unspecified; Z79.899 Other long term (current) drug therapy; Z86.718 Personal history of other venous thrombosis and embolism
CPT/HCPCS: 36415-UA; 76700-TC; 80048-TC; 80053-TC; 81001-TC; 84443-TC; 85025-TC; 87086-90; 96374; J0696; J1650; J7030; Z7610

== ENCOUNTER 2017-06-04 09:16 | Inpatient (IN) | payer MEDICARE ==
[2017-06-04] MEDS ORDERED: cefTRIAXone 1 GM in Sodium Chloride 0.9% 50 ML IV ONE (09:45)
[2017-06-04] MEDS ORDERED: Sodium Chloride 0.9% 500 ML IV ONE ×2 (09:45→11:50)
[2017-06-04] MEDS ORDERED: Levofloxacin 500mg/100mL 500 MG in Premix Fluid 1 BAG IV ONE (09:46)
[2017-06-04 09:52] LABS: HEMATOCRIT 33.4 % (41.0-60); HEMOGLOBIN 11.2 gm/dL (12-16); MEAN CELL VOLUME 84.2 fl (81-100); MEAN CORPUSCULAR HEMOGLOBIN 28.2 pg (27.0-31.0); MEAN CORPUSCULAR HGB CONC 33.5 pg (28.0-36.0); MEAN PLATELET VOLUME 10.2 fl; NEUTROPHILE ABSOLUTE 16.8 Th/cmm (1.8-8.0); PLATELET COUNT 134 Th/cmm (150-400); RED BLOOD COUNT 3.97 Mil/cmm (3.80-5.20)
--- NOTE | 2017-06-04 09:54 | ED Physician Chart ---
ED Chief Complaint/HPI - Patient Information Date Seen:: 06/04/17 Time Seen:: 09:30 Chief Complaint:: Abnormal lab finding with WBC 20K History of Present Illness:: Brought in by ambulance from nursing facility because pt had lab studies earlier today that revealed leukocytosis with WBC 20K. Pt had CXR recently that demonstrates mild ARASH infiltrate. Pt has h/o dementia and is uncooperative; thus , H & P are limited. Pt appears to be comfortable without distress. She is responsive to voice and tactile stimuli. Allergies:: Allergies Allergy/AdvReac Type Severity Reaction Status Date / Time No Known Allergies Allergy Verified 04/27/17 14:35 Vitals:: Vital Signs - 8 hr 06/04/17 09:23 Temp 99.2 F HR 82 RR 16 BP 162/62 O2 Sat % 95 Historian:: Medical Records (from transferring facility.) Family MD/PCP:: Dr. Swan LMP:: Postmenopausal Review:: Nurse's Note Reviewed, Transfer documents Reviewed ED Review of Systems - Review of Systems General/Constitutional: Other (Pt does not cooperate for ROS.) ED Past Medical History - Past Medical History Past Medical History: HTN, CAD, Thyroid disorder, Dementia, Other (Parkinson's Dz, anemia, chronic renal insufficiency.) Family History: Other (Pt does not cooperate to provide info on FHx) Social History: Care Facility, Other (Pt does not cooperate to provide info on SHx.) Surgical History: other (Pt does not cooperate to provide info on Surgical Hx.) Psychiatricy History: Dementia Medication: Reviewed Family Medical History - Family Member Mother History Unknown: Yes Ethnicity: Non- Living Status: ED Physical Exam - Physical Examination General/Constitutional: Awake, Alert, No distress Other Gen/Cons comments:: Breathes comfortably, responds to voice and tactile stimuli. Pt is essentially nonverbal and appears to be well developed and mildly malnourished. Head: Atraumatic Eyes: Lids, conjuctiva normal, PERRL, EOMI Other Eyes comments:: Eye exam is limited because pt keeps her eyes shut whenever attempts are made to do eye exam. Skin: No rash, No ecchymosis, No lymphadenopathy Other Skin comments:: Good color with slight decrease in turgor. ENMT: External ears, nose nl, TM canals nl, Nasal exam nl, Oropharynx nl Other ENMT comments:: Mucous membrane is dry. Neck: Nontender, Full ROM w/o pain, No JVD, No nuchal rigidity, No mass, No stridor Respiratory: Nl effort/Exclusion, Clear to Auscultation, No Wheeze/Rhonchi/Rales Cardio Vascular: RRR, No murmur, gallop, rubs GI: No tenderness/rebounding/guarding, No organomegaly, No hernia, Normal BS's, Nondistended, No mass/bruits, No McBurney tenderness Other GI comments:: Abdomen is soft. : No CVA tenderness Extremities: No tenderness or effusion, No edema Other Neuro/Psych comments:: Alert, responsive to voice and tactile stimuli. Spontaneous movements noticed in all 4 extremities. Pt does not cooperate for full neurological exam. ED Labs/Radiology/EKG Results - Lab Results Results: Laboratory Tests 06/04/17 06/04/17 06/04/17 09:37 09:43 09:43 WBC 18.5 H D RBC 3.97 Hgb 11.2 L Hct 33.4 L MCV 84.2 MCH 28.2 MCHC Differential 33.5 RDW 15.0 Plt Count 134 L D MPV 10.2 Band Neutrophils % 11 H Neutrophils (Manual) 83 H Lymphocytes 4 L Monocytes 2 PT 9.8 INR 0.94 PTT (Actin FS) 21.4 L Sodium Potassium Chloride Carbon Dioxide Anion Gap BUN Creatinine Est GFR ( Amer) Est GFR (Non-Af Amer) BUN/Creatinine Ratio Glucose Whole Bld Lactic Acid Calcium Total Bilirubin AST ALT Alkaline Phosphatase Creatine Kinase Troponin I Total Protein Albumin Globulin Albumin/Globulin Ratio Urine Source JARA [place] Urine Color YELLOW Urine Clarity CLOUDY H Urine pH 5.5 Ur Specific [place] 1.010 Urine Protein 100 H Urine Glucose (UA) NEGATIVE Urine Ketones NEGATIVE Urine Blood LARGE H Urine Nitrate NEGATIVE Urine Bilirubin NEGATIVE Urine Urobilinogen 0.2 Ur Leukocyte Esterase LARGE H Urine RBC 5-10 H Urine WBC 50-100 H Ur Epithelial Cells MODERATE Urine Bacteria 3+ H 06/04/17 06/04/17 09:43 09:43 WBC RBC Hgb Hct MCV MCH MCHC Differential RDW Plt Count MPV Band Neutrophils % Neutrophils (Manual) Lymphocytes Monocytes PT INR PTT (Actin FS) Sodium 140 Potassium 3.9 Chloride 110 H Carbon Dioxide 22.5 Anion Gap 11.4 BUN 68 H Creatinine 2.4 H Est GFR ( Amer) TNP Est GFR (Non-Af Amer) TNP BUN/Creatinine Ratio 28.3 Glucose 112 H Whole Bld Lactic Acid 1.11 Calcium 8.6 Total Bilirubin 0.4 AST 23 ALT 24 Alkaline Phosphatase 117 H Creatine Kinase 72 Troponin I 0.05 Total Protein 6.2 Albumin 3.0 L Globulin 3.2 Albumin/Globulin Ratio 0.9 L Urine Source Urine Color Urine Clarity Urine pH Ur Specific [place] Urine Protein Urine Glucose (UA) Urine Ketones Urine Blood Urine Nitrate Urine Bilirubin Urine Urobilinogen Ur Leukocyte Esterase Urine RBC Urine WBC Ur Epithelial Cells Urine Bacteria - Radiology Results Results: PCXR: Based on my interpretation, poor inspiration. ?increased markings at left upper lung field. Official report is pending. - EKG Interpretations EKG Time:: 09:53 Rate & Rhythm: NSR with VR 81 Comments:: LBBB. NSSTT changes. Cardiac monitoring: NSR with VR 80. No ectopy. ED Septic Shock - . Is Septic Shock (SBP<90, OR Lactate>4 mmol\L) present?: No - <6hrs of presentation: Vital Signs: Vital Signs - 8 hr 06/04/17 09:23 Temp 99.2 F HR 82 RR 16 BP 162/62 O2 Sat % 95 ED Reassessment (Disposition) - Reassessment Reassessment:: 1045 Pt remains stable and appears to be more active. Remaining lab results just became available. Dr. Swan is to be contacted. 1052 Case was discussed with Dr. Swan with pertinent H & P, EKG, CXR, and lab findings reviewed. He concurred with present management. Pt is to be admitted to [facility] under his care. Reassessment Condition:: Improved - Diagnosis Diagnosis:: Leukocytosis with bandemia related to urinary tract infection. ?increased markings at ARSAH of lung. Elevated BUN/Creatinine c/w dehydration with prerenal azotemia superimposed on chronic renal insufficiency. Chronic anemia. HTN H/O ASHD Dementia Mild hyperglycemia - Patient Disposition Admitted to:: Telemetry Admitting Medical Physician:: Carroll Swan Time:: 10:55 Condition at Disposition:: Stable, Improved
[2017-06-04 10:05] LABS: INR 0.94 (0.5-1.4); PROTHROMBIN TIME (TEST) 9.8 SECONDS (9.5-11.5)
[2017-06-04 10:06] LABS: ALB/GLOB RATIO 0.9 (1.0-1.8); ALKALINE PHOSPHATASE 117 U/L (34-104); ANION GAP 11.4 (7.0-16.0); BILIRUBIN,TOTAL 0.4 mg/dL (0.3-1.0); BUN - UREA NITROGEN 68 mg/dL (7-25); BUN/CREATININE RATIO 28.3; CALCIUM SERUM 8.6 mg/dL (8.6-10.3); CARBON DIOXIDE 22.5 mEq/L (21.0-31.0); CHLORIDE 110 mEq/L (98-107); CREATININE - SERUM 2.4 mg/dL (0.6-1.2); GLUCOSE 112 mg/dL (70-105); POTASSIUM SERUM 3.9 mEq/L (3.5-5.1); SGOT 23 U/L (13-39); SGPT/ALT 24 U/L (7-52); SODIUM SERUM 140 mEq/L (136-145)
[2017-06-04 10:11] LABS: WHITE BLOOD COUNT 18.5 Th/cmm (4.8-10.8)
[2017-06-04 10:16] LABS: TROP I 0.05 ng/mL (0.01-0.05)
[2017-06-04 10:17] LABS: URINE BILIRUBIN NEGATIVE (NEGATIVE); URINE BLOOD LARGE (NEGATIVE); URINE GLUCOSE (UA) NEGATIVE (NEGATIVE); URINE KETONE NEGATIVE (NEGATIVE); URINE PH 5.5 (4.6 - 8.0); URINE PROTEIN 100 mg/dL (NEGATIVE); URINE UROBILINOGEN 0.2 E.U./dL (0.2 - 1.0)
[2017-06-04 10:19] LABS: URINE COLOR YELLOW
[2017-06-04 10:21] LABS: BAND NEUTROPHILE 11 % (0-10); NEUTROPHILS 83 % (40-80); TOTAL CELLS COUNTED 100
[2017-06-04 10:29] LABS: URINE BACTERIA 3+ /hpf (NONE SEEN); URINE EPITHELIAL CELLS MODERATE /lpf (FEW); URINE WBC 50-100 /hpf (0-5)
[2017-06-04] MEDS ORDERED: Levofloxacin 500mg/100mL 500 MG/100 ML BAG IV ONE (10:41)
[2017-06-04] MEDS ORDERED: cefTRIAXone 1 GM in Sodium Chloride 0.9% 50 ML IV SCH (11:31)
[2017-06-04] MEDS ORDERED: Levofloxacin 500mg/100mL 500 MG/100 ML BAG IV SCH (11:31)
[2017-06-04] MEDS: Sodium Chloride 0.9% 1,000 ML IV SCH ×2 (11:43→22:54)
[2017-06-04] MEDS ORDERED: Sodium Chloride 0.9% 1,000 ML IV ONE ×2 (11:50→12:51)
[2017-06-04] MEDS: Albuterol/Ipratropium Neb 3 ML AERS HHN SCH (14:46)
[2017-06-05] MEDS: Albuterol/Ipratropium Neb 3 ML AERS HHN SCH ×3 (00:40→14:42)
--- NOTE | 2017-06-05 01:16 | Consultation ---
DATE OF CONSULTATION: 06/04/2017 REFERRING PHYSICIAN: Dr. Swan. Thank you very much, Dr. Swan for this consultation. HISTORY OF PRESENT ILLNESS: This is an 86-year-old female who presented with altered level of consciousness, shortness of breath, tachypnea, tachycardia, and was diagnosed with sepsis and UTI. The patient was hypotensive and was given fluids. Her tachypnea and tachycardia have improved significantly. Blood pressure stabilized. The patient is more awake and able to respond properly. PAST MEDICAL HISTORY: Dementia, dysphagia, and weakness. SOCIAL HISTORY: detention resident. No history of smoking or drinking. REVIEW OF SYSTEMS: Unable to obtain because of the patient's condition. PHYSICAL EXAMINATION: GENERAL: The patient is arousable, weak, not in acute distress at this point. VITAL SIGNS: Temperature 97.2, pulse 98, respiration down from 36 to 22, blood pressure is 123/48, and saturation 96%. HEENT: Atraumatic and normocephalic. Pupils react to light and accommodation. Ears, nose, and throat are normal. NECK: Supple. No JVD. CHEST: There are a few rhonchi in bases, fair air entry. HEART: Regular rate and rhythm. ABDOMEN: Soft. EXTREMITIES: No edema. LABORATORY DATA: WBC is 18.5, hemoglobin 11.2, hematocrit 33.4, and platelets 134,000. Sodium is 140, potassium is 3.9, BUN is 16, and creatinine 2.4. Troponin is negative. UA is positive for WBCs, leukocyte esterase, and bacteria. IMPRESSION: This is an 86-year-old female with; 1. Sepsis. 2. Urinary tract infection. 3. Rule out pneumonia. 4. Respiratory failure, improved. 5. Acute renal failure and dehydration. PLAN: 1. IV antibiotics. 2. Nebulizer treatment. 3. Oxygen supplementation. 4. Pulmonary toilet. 5. Follow up chest x-ray. Follow up labs. I will follow the patient with you. Thank you very much for this consultation. JOB# [id number] BETH
--- NOTE | 2017-06-05 07:56 | Diagnostic Imaging Report ---
Portable chest x-ray Time: 1030 hours History: Leukocytosis Allowing for portable technique the heart size is normal. No focal pulmonary parenchymal processes. No hilar or mediastinal abnormalities. Impression: No acute abnormalities.
--- NOTE | 2017-06-05 08:51 | History and Physical ---
History of Present Illness - HPI Chief Complaint: Leukocytosis HPI: Patient is a permanent resident of a senior living, I received a call stating that patient has having fever a CBC and CXR was order and WBC was 20.000 and CXR showed possible PNA. Patient was transferred to ER for evaluation. Vital Signs: Last Vital Signs Temp 98.4 F 06/05/17 04:00 Pulse 88 06/05/17 06:44 Resp 18 06/05/17 06:44 BP 128/63 06/05/17 04:00 Pulse Ox 92 06/05/17 06:44 Past Medical History Cardiovascular: Report: CAD, HTN Pulmonary: Report: No Pertinent Hx TAKER OFF DRYING KILN: Report: Dementia, Other (Parkinson) GI: Report: No Pertinent Hx Psych: Report: Psychosis Musculoskeletal: Report: Muscle Atrophy, Other (Non ambulatory) Rheumatologic: Report: No pertinent Hx Infectious Disease: Report: Other (Frequent UTI) Renal/: Report: Chronic Renal Insuff Endocrine: Report: Hyperthyroidism Dermatology: Report: Other (Previous Decubits ulcers) - Past Surgical History Past Surgical History: No pertinent Hx Family Medical History - Family Member Mother History Unknown: Yes Ethnicity: Unknown Living Status: Unknown Social History Smoke: No Alcohol: None Drugs: None Lives: Prison Domestic Violence: Negative - Medications Home Medications: Home Medication Medication Instructions Recorded Type Acetaminophen [Tylenol 500 mg PO Q6HR PRN 04/27/17 History 650mg/20.3mL Suspension] Apixaban [Eliquis] 2.5 mg PO BID 04/27/17 History Cranberry 400 mg PO DAILY 04/27/17 History Dextran 70/Hypromellose/Pf 1 each OP BID PRN 04/27/17 History [Artificial Tears Drops] Docusate Sodium [Colace] 100 mg PO TID 04/27/17 History Duloxetine HCl [Cymbalta] 20 mg PO HS 04/27/17 History Ferrous Sulfate [Iron] 1 tab PO DAILY 04/27/17 History Levothyroxine [Synthroid] 25 mcg PO QAM 04/27/17 History Multivitamin-Min/Iron/FA/Vit K 1 tab PO DAILY 04/27/17 History [Multi-Day Plus Minerals Tablet] Pramipexole Di-HCl [Mirapex] 0.125 mg PO HS 04/27/17 History Rivastigmine [Exelon] 13.3 mg TD DAILY 04/27/17 History Tolterodine Tartrate [Detrol LA] 4 mg PO DAILY 04/27/17 History Nutritional Supplement [Resource 60 ml PO TID 06/04/17 History 2.0 237 ml] Vit C 500 1 tab PO DAILY 06/04/17 History - Allergies Allergies/Adverse Reactions: Allergies Allergy/AdvReac Type Severity Reaction Status Date / Time No Known Allergies Allergy Verified 04/27/17 14:35 Review of Systems - Review of Systems Constitutional: Report: Fever, Weakness Eyes: Report: No Significant ENT: Report: No Significant Respiratory: Report: No Significant Cardiovascular: Report: Palpitations Gastrointestinal: Report: No Significant Genitourinary: Report: Incontinence, Other (UTI) Musculoskeletal: Report: Other (Weakness) Skin: Report: No Significant Neurological: Report: Weakness, Other (Non verbal) Physical Exam - Physical Exam HEENT: Report: Ears Nose Throat within normal limits Neck: Report: Within normal limits Cardiovascular Systems: Report: Irregular rhythm was noted Respiratory: Report: Breath Sounds are within normal limits Abdomen: Report: Non-tender to palpation Back: Report: Inspection of back is within normal limits. Extremities: Report: Non-tender to palpation. Skin: Report: Color of skin is within normal limits Neuro/Psych: Report: Disoriented to name time or place - Lab Results All Lab Results last 24 hours: Laboratory Last Values WBC 18.5 Th/cmm (4.8-10.8) H D 06/04/17 09:43 RBC 3.97 Mil/cmm (3.80-5.20) 06/04/17 09:43 Hgb 11.2 gm/dL (12-16) L 06/04/17 09:43 Hct 33.4 % (41.0-60) L 06/04/17 09:43 MCV 84.2 fl (81-100) 06/04/17 09:43 MCH 28.2 pg (27.0-31.0) 06/04/17 09:43 MCHC Differential 33.5 pg (28.0-36.0) 06/04/17 09:43 RDW 15.0 % (11.5-20.0) 06/04/17 09:43 Plt Count 134 Th/cmm (150-400) L D 06/04/17 09:43 MPV 10.2 fl 06/04/17 09:43 Band Neutrophils % 11 % (0-10) H 06/04/17 09:43 Neutrophils (Manual) 83 % (40-80) H 06/04/17 09:43 Lymphocytes 4 % (20-50) L 06/04/17 09:43 Monocytes 2 % (2-10) 06/04/17 09:43 PT 9.8 SECONDS (9.5-11.5) 06/04/17 09:43 INR 0.94 (0.5-1.4) 06/04/17 09:43 PTT (Actin FS) 21.4 SECONDS (26.0-38.0) L 06/04/17 09:43 Sodium 140 mEq/L (136-145) 06/04/17 09:43 Potassium 3.9 mEq/L (3.5-5.1) 06/04/17 09:43 Chloride 110 mEq/L (98-107) H 06/04/17 09:43 Carbon Dioxide 22.5 mEq/L (21.0-31.0) 06/04/17 09:43 Anion Gap 11.4 (7.0-16.0) 06/04/17 09:43 BUN 68 mg/dL (7-25) H 06/04/17 09:43 Creatinine 2.4 mg/dL (0.6-1.2) H 06/04/17 09:43 Est GFR ( Amer) TNP 06/04/17 09:43 Est GFR (Non-Af Amer) TNP 06/04/17 09:43 BUN/Creatinine Ratio 28.3 06/04/17 09:43 Glucose 112 mg/dL (70-105) H 06/04/17 09:43 Whole Bld Lactic Acid 1.11 mmol/L (0.60-1.99) 06/04/17 09:43 Calcium 8.6 mg/dL (8.6-10.3) 06/04/17 09:43 Total Bilirubin 0.4 mg/dL (0.3-1.0) 06/04/17 09:43 AST 23 U/L (13-39) 06/04/17 09:43 ALT 24 U/L (7-52) 06/04/17 09:43 Alkaline Phosphatase 117 U/L (34-104) H 06/04/17 09:43 Creatine Kinase 72 U/L (30-223) 06/04/17 09:43 Troponin I 0.05 ng/mL (0.01-0.05) 06/04/17 09:43 Total Protein 6.2 gm/dL (6.0-8.3) 06/04/17 09:43 Albumin 3.0 gm/dL (3.7-5.3) L 06/04/17 09:43 Globulin 3.2 gm/dL 06/04/17 09:43 Albumin/Globulin Ratio 0.9 (1.0-1.8) L 06/04/17 09:43 Urine Source JARA [place] 06/04/17 09:37 Urine Color YELLOW 06/04/17 09:37 Urine Clarity CLOUDY (CLEAR) H 06/04/17 09:37 Urine pH 5.5 (4.6 - 8.0) 06/04/17 09:37 Ur Specific [place] 1.010 (1.005-1.030) 06/04/17 09:37 Urine Protein 100 mg/dL (NEGATIVE) H 06/04/17 09:37 Urine Glucose (UA) NEGATIVE mg/dL (NEGATIVE) 06/04/17 09:37 Urine Ketones NEGATIVE mg/dL (NEGATIVE) 06/04/17 09:37 Urine Blood LARGE (NEGATIVE) H 06/04/17 09:37 Urine Nitrate NEGATIVE (NEGATIVE) 06/04/17 09:37 Urine Bilirubin NEGATIVE (NEGATIVE) 06/04/17 09:37 Urine Urobilinogen 0.2 E.U./dL (0.2 - 1.0) 06/04/17 09:37 Ur Leukocyte Esterase LARGE (NEGATIVE) H 06/04/17 09:37 Urine RBC 5-10 /hpf (0-5) H 06/04/17 09:37 Urine WBC 50-100 /hpf (0-5) H 06/04/17 09:37 Ur Epithelial Cells MODERATE /lpf (FEW) 06/04/17 09:37 Urine Bacteria 3+ /hpf (NONE SEEN) H 06/04/17 09:37 - Assessment Assessment: Patient is awake, non verbal, not following verbal commands. Dx: Sepsis secondary to UTI, HTN, CRF, CAD, Hypothyroidism, Dementia, Parkinson - Plan Plan: Patient in Rocephin, IV NS, continue with SNF meds, Consult with Pulmonology done. Will continue to monitor.
[2017-06-05 08:59] LABS: MEAN CORPUSCULAR HGB CONC 33.4 pg (28.0-36.0); MEAN PLATELET VOLUME 9.7 fl; RED BLOOD COUNT 3.56 Mil/cmm (3.80-5.20); RED CELL DISTRIBUTION WIDTH 14.8 % (11.5-20.0)
[2017-06-05] MEDS ORDERED: Non-Formulary Item 1 EA (Nutritional Supplement [Resource 2.0] 60 ML) PO SCH (09:00)
[2017-06-05] MEDS ORDERED: RIVASTIGMINE 13.3 MG TD SCH (09:00)
[2017-06-05 09:05] LABS: PLATELET COUNT 107 Th/cmm (150-400); WHITE BLOOD COUNT 13.9 Th/cmm (4.8-10.8)
[2017-06-05 09:16] LABS: BAND NEUTROPHILE 2 % (0-10); HEMATOCRIT 29.9 % (41.0-60); NEUTROPHILS 81 % (40-80); TOTAL CELLS COUNTED 100
[2017-06-05 09:19] LABS: ALB/GLOB RATIO 0.9 (1.0-1.8); ALKALINE PHOSPHATASE 140 U/L (34-104); ANION GAP 13.7 (7.0-16.0); BILIRUBIN,TOTAL 0.4 mg/dL (0.3-1.0); BUN - UREA NITROGEN 57 mg/dL (7-25); BUN/CREATININE RATIO 28.5; CALCIUM SERUM 8.3 mg/dL (8.6-10.3); CARBON DIOXIDE 17.8 mEq/L (21.0-31.0); CHLORIDE 117 mEq/L (98-107); GLUCOSE 102 mg/dL (70-105); POTASSIUM SERUM 3.5 mEq/L (3.5-5.1); SGOT 54 U/L (13-39); SGPT/ALT 32 U/L (7-52); SODIUM SERUM 145 mEq/L (136-145)
[2017-06-05] MEDS: Ferrous Sulfate 325 MG TAB PO SCH (10:55)
[2017-06-05] MEDS: Levothyroxine 0.025 Mg Tab PO SCH (10:55)
[2017-06-05] MEDS: Multivitamin w/ Minerals Tab PO SCH (10:57)
[2017-06-05] MEDS: Non-Formulary Item 1 EA (Apixaban [Eliquis] 2.5 MG) PO SCH ×2 (11:09→17:06)
[2017-06-05] MEDS: cefTRIAXone 1 GM in 0.9% NS 50 ML IV SCH (12:05)
[2017-06-05] MEDS: D5-0.9%NS 1,000 ML IV SCH ×2 (12:28→19:31)
[2017-06-05] MEDS: Levofloxacin 250 mg/50 mL Premix Bag IV SCH (12:28)
[2017-06-05] MEDS ORDERED: Probiotic Screen MC PRN (16:40)
[2017-06-05] MEDS: Lactobacillus Rhamnosus 10 Billion CFU Capsule PO SCH (18:51)
[2017-06-05] MEDS ORDERED: Non-Formulary Item 1 EA (Duloxetine Hcl [Cymbalta] 20 MG) PO SCH (21:00)
--- NOTE | 2017-06-05 21:42 | Consultation ---
DATE OF CONSULTATION: 06/04/[address] Swan. HISTORY AND PHYSICAL: This is an 86-year-old female patient who had been having shortness of breath. Following this, the patient came to the Emergency Room. The patient had elevated temperature with sinus tachycardia and hence Cardiology consult was requested. PAST MEDICAL HISTORY: Hypertension, hypothyroid, dementia, Parkinson's disease, iron deficiency anemia, and CKD stage 3. FAMILY HISTORY: Unremarkable. SOCIAL HISTORY: No history of smoking or alcohol abuse. ALLERGIES: None. PHYSICAL EXAMINATION: VITAL SIGNS: Blood pressure 130/82, pulse 90, and respirations 20. HEAD: Normocephalic. No lumps or bumps. EYES: Pupils are equal and reactive to light. Fundi show AV nicking. Sclerae white. Conjunctivae pink. NECK: Carotid 2+. Normal upstroke. JVD 10 cm above the sternal angle. Thyroid not palpable. Lymph nodes not palpable. CHEST: Shows increased AP diameter. No kyphosis or scoliosis. LUNGS: Bilateral bronchovesicular breath sounds. Occasional wheeze. No rales. HEART: PMI fifth intercostal space with lateral to midclavicular line. S1, S2. No S3, soft S4, systolic murmur, grade 2/6, lower left sternal border without radiation. ABDOMEN: Soft. Liver and spleen not palpable. No organomegaly. Bowel sounds active. NEUROLOGIC: Unremarkable. EXTREMITIES: Peripheral pulses 2+. No pedal edema. CLINICAL IMPRESSION: Sinus tachycardia, urinary tract infection, sepsis, Parkinson's disease, dementia, hypothyroid, iron deficiency anemia, hypertension, chronic kidney disease stage III, and sepsis. PLAN: We will continue IV antibiotics. Pulmonary consult. Monitor the patient. Control the heart rate. JOB# [id number]
[2017-06-06] MEDS: Albuterol/Ipratropium Neb 3 ML AERS HHN SCH ×4 (00:01→23:46)
[2017-06-06 05:57] LABS: HEMATOCRIT 30.4 % (41.0-60); HEMOGLOBIN 10.3 gm/dL (12-16); MEAN CELL VOLUME 83.9 fl (81-100); MEAN CORPUSCULAR HEMOGLOBIN 28.4 pg (27.0-31.0); MEAN CORPUSCULAR HGB CONC 33.8 pg (28.0-36.0); MEAN PLATELET VOLUME 10.1 fl; NEUTROPHILE ABSOLUTE 10.7 Th/cmm (1.8-8.0); PLATELET COUNT 115 Th/cmm (150-400); RED BLOOD COUNT 3.62 Mil/cmm (3.80-5.20); WHITE BLOOD COUNT 11.5 Th/cmm (4.8-10.8)
[2017-06-06 06:17] LABS: ALB/GLOB RATIO 0.9 (1.0-1.8); ALKALINE PHOSPHATASE 138 U/L (34-104); ANION GAP 12.9 (7.0-16.0); BILIRUBIN,TOTAL 0.5 mg/dL (0.3-1.0); BUN - UREA NITROGEN 47 mg/dL (7-25); BUN/CREATININE RATIO 27.6; CALCIUM SERUM 8.6 mg/dL (8.6-10.3); CARBON DIOXIDE 19.8 mEq/L (21.0-31.0); CHLORIDE 121 mEq/L (98-107); CREATININE - SERUM 1.7 mg/dL (0.6-1.2); GLUCOSE 123 mg/dL (70-105); POTASSIUM SERUM 3.7 mEq/L (3.5-5.1); SGOT 41 U/L (13-39); SGPT/ALT 34 U/L (7-52); SODIUM SERUM 150 mEq/L (136-145)
[2017-06-06] MEDS: D5-0.9%NS 1,000 ML IV SCH (07:13)
[2017-06-06] MEDS: Levothyroxine 0.025 Mg Tab PO SCH (07:13)
--- NOTE | 2017-06-06 08:20 | Diagnostic Imaging Report ---
Portable chest x-ray HISTORY: Shortness of breath There is a poor inspiration. Heart size difficult to assess. No focal pulmonary processes. No hilar or mediastinal abnormalities. IMPRESSION: 1. No acute focal pulmonary processes
--- NOTE | 2017-06-06 08:57 | General Progress Note ---
Subjective - Review of Systems Service Date: 06/06/18 Subjective: Incoherent Objective - Results Result Diagrams: 06/06/17 05:20 06/06/17 05:20 Recent Labs: Laboratory Last Values WBC 11.5 Th/cmm (4.8-10.8) H 06/06/17 05:20 RBC 3.62 Mil/cmm (3.80-5.20) L 06/06/17 05:20 Hgb 10.3 gm/dL (12-16) L 06/06/17 05:20 Hct 30.4 % (41.0-60) L 06/06/17 05:20 MCV 83.9 fl (81-100) 06/06/17 05:20 MCH 28.4 pg (27.0-31.0) 06/06/17 05:20 MCHC Differential 33.8 pg (28.0-36.0) 06/06/17 05:20 RDW 15.0 % (11.5-20.0) 06/06/17 05:20 Plt Count 115 Th/cmm (150-400) L 06/06/17 05:20 MPV 10.1 fl 06/06/17 05:20 Band Neutrophils % 2 % (0-10) 06/05/17 08:50 Neutrophils (Manual) 81 % (40-80) H 06/05/17 08:50 Lymphocytes 13 % (20-50) L 06/05/17 08:50 Monocytes 4 % (2-10) 06/05/17 08:50 PT 9.8 SECONDS (9.5-11.5) 06/04/17 09:43 INR 0.94 (0.5-1.4) 06/04/17 09:43 PTT (Actin FS) 21.4 SECONDS (26.0-38.0) L 06/04/17 09:43 Sodium 150 mEq/L (136-145) H 06/06/17 05:20 Potassium 3.7 mEq/L (3.5-5.1) 06/06/17 05:20 Chloride 121 mEq/L (98-107) H 06/06/17 05:20 Carbon Dioxide 19.8 mEq/L (21.0-31.0) L 06/06/17 05:20 Anion Gap 12.9 (7.0-16.0) 06/06/17 05:20 BUN 47 mg/dL (7-25) H 06/06/17 05:20 Creatinine 1.7 mg/dL (0.6-1.2) H 06/06/17 05:20 Est GFR ( Amer) TNP 06/06/17 05:20 Est GFR (Non-Af Amer) TNP 06/06/17 05:20 BUN/Creatinine Ratio 27.6 06/06/17 05:20 Glucose 123 mg/dL (70-105) H 06/06/17 05:20 Whole Bld Lactic Acid 1.11 mmol/L (0.60-1.99) 06/04/17 09:43 Calcium 8.6 mg/dL (8.6-10.3) 06/06/17 05:20 Total Bilirubin 0.5 mg/dL (0.3-1.0) 06/06/17 05:20 AST 41 U/L (13-39) H 06/06/17 05:20 ALT 34 U/L (7-52) 06/06/17 05:20 Alkaline Phosphatase 138 U/L (34-104) H 06/06/17 05:20 Creatine Kinase 72 U/L (30-223) 06/04/17 09:43 Troponin I 0.05 ng/mL (0.01-0.05) 06/04/17 09:43 Total Protein 6.1 gm/dL (6.0-8.3) 06/06/17 05:20 Albumin 2.9 gm/dL (3.7-5.3) L 06/06/17 05:20 Globulin 3.2 gm/dL 06/06/17 05:20 Albumin/Globulin Ratio 0.9 (1.0-1.8) L 06/06/17 05:20 Urine Source [place] 06/04/17 09:37 Urine Color YELLOW 06/04/17 09:37 Urine Clarity CLOUDY (CLEAR) H 06/04/17 09:37 Urine pH 5.5 (4.6 - 8.0) 06/04/17 09:37 Ur Specific [place] 1.010 (1.005-1.030) 06/04/17 09:37 Urine Protein 100 mg/dL (NEGATIVE) H 06/04/17 09:37 Urine Glucose (UA) NEGATIVE mg/dL (NEGATIVE) 06/04/17 09:37 Urine Ketones NEGATIVE mg/dL (NEGATIVE) 06/04/17 09:37 Urine Blood LARGE (NEGATIVE) H 06/04/17 09:37 Urine Nitrate NEGATIVE (NEGATIVE) 06/04/17 09:37 Urine Bilirubin NEGATIVE (NEGATIVE) 06/04/17 09:37 Urine Urobilinogen 0.2 E.U./dL (0.2 - 1.0) 06/04/17 09:37 Ur Leukocyte Esterase LARGE (NEGATIVE) H 06/04/17 09:37 Urine RBC 5-10 /hpf (0-5) H 06/04/17 09:37 Urine WBC 50-100 /hpf (0-5) H 06/04/17 09:37 Ur Epithelial Cells MODERATE /lpf (FEW) 06/04/17 09:37 Urine Bacteria 3+ /hpf (NONE SEEN) H 06/04/17 09:37 - Physical Exam Vitals and I&O: Vital Signs Temp 97.5 F 06/06/17 04:00 Pulse 78 06/06/17 06:46 Resp 20 06/06/17 06:46 BP 159/109 06/06/17 04:00 Pulse Ox 98 06/06/17 06:46 Intake & Output 06/05/17 06/06/17 06/06/17 18:59 06:59 18:59 Intake Total 100 1705.000 Output Total 1300 650 Balance -1200 1055.000 Weight (lbs) 77.655 kg 86.835 kg Intake: Intake, IV Amount 100 1705.000 D5-0.9%Ns 1,000 ml @ 100 1705.000 mls/hr IV .Q10H [facility] Rx#: [id number] Levofloxacin 250mg/50mL 50 250 mg In 50 ml @ 50 mls/ hr IV Q24H [facility] Rx#: [id number] cefTRIAXone 1 gm In 50 Sodium Chloride 0.9% 50 ml @ 100 mls/hr IV Q24H [facility] Rx#:[id number] Oral 0 Output: Urine 1300 650 Other: # Bowel Movements 1 1 Active Medications: Current Medications Acetaminophen (Tylenol) 650 mg PO Q6H PRN PRN Reason: fever Stop: 08/03/17 11:30 Albuterol/Ipratropium (Duoneb Neb) 3 ml HHN Q8HRT [facility] Stop: 08/03/17 14:59 Last Admin: 06/06/17 06:42 Dose: 3 ml Ascorbic Acid (Vitamin C) 500 mg PO DAILY [facility] Stop: 08/04/17 09:59 Last Admin: 06/05/17 10:57 Dose: Not Given Docusate Sodium (Colace) 100 mg PO TID [facility] Stop: 08/04/17 08:59 Last Admin: 06/05/17 21:02 Dose: 100 mg Ferrous Sulfate (Iron) 325 mg PO DAILY [facility] Stop: 08/04/17 08:59 Last Admin: 06/05/17 10:55 Dose: Not Given Ceftriaxone Sodium 1 gm/ (Sodium Chloride) 50 mls @ 100 mls/hr IV Q24H [facility] Stop: 08/04/17 10:59 Last Infusion: 06/05/17 12:35 Dose: Infused Levofloxacin (Levaquin Pb) 250 mg in 50 mls @ 50 mls/hr IV Q24H [facility] Stop: 08/04/17 11:59 Last Infusion: 06/05/17 13:40 Dose: Infused Lactobacillus Rhamnosus (Culturelle) 1 each PO DAILY [facility] Stop: 08/04/17 16:59 Last Admin: 06/05/17 18:51 Dose: 1 each Levothyroxine Sodium (Synthroid) 0.025 mg PO QDAC [facility] Stop: 08/04/17 08:59 Last Admin: 06/06/17 07:13 Dose: 0.025 mg Metoprolol Tartrate (Lopressor) 50 mg PO BID [facility] Stop: 08/05/17 08:59 Miscellaneous (Apixaban [Eliquis]) 2.5 mg PO BID [facility] Stop: 08/04/17 08:59 Last Admin: 06/05/17 17:06 Dose: Not Given Miscellaneous (Duloxetine Hcl [Cymbalta]) 20 mg PO HS [facility] Stop: 08/04/17 20:59 Miscellaneous (Rivastigmine [Exelon]) 13.3 mg TD DAILY [facility] Stop: 08/04/17 08:59 Last Admin: 06/05/17 10:58 Dose: Not Given Miscellaneous (Probiotic Screen) 1 ea MC PRN PRN PRN Reason: PROTOCOL Stop: 08/04/17 16:39 Mupirocin (Bactroban Oint) 1 appl NS BID [facility] Stop: 06/10/17 09:01 Last Admin: 06/05/17 18:51 Dose: 1 appl Pramipexole Dihydrochloride (Mirapex) 0.125 mg PO HS [facility] Stop: 08/04/17 20:59 Last Admin: 06/05/17 21:01 Dose: 0.125 mg Rivaroxaban (Xarelto) 10 mg PO DAILY [facility] Stop: 08/05/17 08:59 General: Alert, Other (Confused, not oriented, eating) HEENT: Atraumatic Neck: Supple Cardiovascular: Regular rate Lungs: Other (Rude respiration, occasional whezzing) Abdomen: Bowel sounds, Soft Extremities: Other (No edenma) Neurological: Other (Non ambulatory) Skin: Other (warm and dry) Psych/Mental Status: Other (Confused not oriented) Assessment/Plan - Assessment Assessment: Patient is awake, confused, not following verbal commands. Dx: Sepsis secondary to UTI, HTN, CRF, CAD, Hypothyroidism, Dementia, Parkinson. Patient improving, BP now is high, WBC lower, and patient is awake. - Plan Plan: Patient in Rocephin, IV NS, continue with SNF meds, Consult with Pulmonology done. Will continue to monitor.
[2017-06-06] MEDS: Lactobacillus Rhamnosus 10 Billion CFU Capsule PO SCH (09:17)
[2017-06-06] MEDS: Multivitamin w/ Minerals Tab PO SCH (09:17)
[2017-06-06] MEDS: Ferrous Sulfate 325 MG TAB PO SCH (09:17)
[2017-06-06] MEDS: Dextrose 5% 1,000 ML IV SCH ×2 (09:18→22:42)
[2017-06-06] MEDS: cefTRIAXone 1 GM in 0.9% NS 50 ML IV SCH (11:03)
[2017-06-06] MEDS: Levofloxacin 250 mg/50 mL Premix Bag IV SCH (11:47)
[2017-06-07 05:46] LABS: % BASOPHILS 0.3 % (0.0-2.0); % EOSINOPHILS 1.8 % (0.0-5.0); % LYMPHOCYTES 7.5 % (20.0-50.0); % MONOCYTES 7.8 % (2.0-10.0); % NEUTROPHILS 82.6 % (40.0-80.0); HEMATOCRIT 29.5 % (41.0-60); HEMOGLOBIN 9.8 gm/dL (12-16); MEAN CELL VOLUME 82.7 fl (81-100); MEAN CORPUSCULAR HEMOGLOBIN 27.5 pg (27.0-31.0); MEAN CORPUSCULAR HGB CONC 33.2 pg (28.0-36.0); MEAN PLATELET VOLUME 8.9 fl; PLATELET COUNT 130 Th/cmm (150-400); RED BLOOD COUNT 3.56 Mil/cmm (3.80-5.20); RED CELL DISTRIBUTION WIDTH 14.8 % (11.5-20.0); WHITE BLOOD COUNT 9.6 Th/cmm (4.8-10.8)
[2017-06-07 06:23] LABS: ALB/GLOB RATIO 0.9 (1.0-1.8); ALKALINE PHOSPHATASE 119 U/L (34-104); ANION GAP 12.1 (7.0-16.0); BILIRUBIN,TOTAL 0.4 mg/dL (0.3-1.0); BUN - UREA NITROGEN 36 mg/dL (7-25); BUN/CREATININE RATIO 22.5; CALCIUM SERUM 8.2 mg/dL (8.6-10.3); CARBON DIOXIDE 19.2 mEq/L (21.0-31.0); CHLORIDE 119 mEq/L (98-107); CREATININE - SERUM 1.6 mg/dL (0.6-1.2); GLUCOSE 122 mg/dL (70-105); POTASSIUM SERUM 3.3 mEq/L (3.5-5.1); SGOT 23 U/L (13-39); SGPT/ALT 29 U/L (7-52); SODIUM SERUM 147 mEq/L (136-145)
[2017-06-07] MEDS: Levothyroxine 0.025 Mg Tab PO SCH (06:33)
[2017-06-07] MEDS: Albuterol/Ipratropium Neb 3 ML AERS HHN SCH (06:46)
--- NOTE | 2017-06-07 08:39 | Discharge Summary ---
General Discharge Summary - Discharge Summary Date of Admission: 06/04/17 Admitting Diagnosis: Sepsis secondary to UTI, HTN, CRF, CAD, Hypothyroidism, Dementia, Parkinson Discharge Date: 06/07/17 Discharge Diagnosis: Sepsis secondary to UTI, HTN, CKF, CAD, Hypothyroidism, Dementia, Parkinson Laboratory Findings: Laboratory Tests 06/05/17 06/05/17 06/06/17 08:50 08:50 05:20 WBC 13.9 H D 11.5 H RBC 3.56 L 3.62 L Hgb 10.0 L 10.3 L Hct 29.9 L D 30.4 L MCV 84.0 83.9 MCH 28.0 28.4 MCHC Differential 33.4 33.8 RDW 14.8 15.0 Plt Count 107 L D 115 L MPV 9.7 10.1 Neutrophils % Band Neutrophils % 2 Lymphocytes % Monocytes % Eosinophils % Basophils % Neutrophils (Manual) 81 H Lymphocytes 13 L Monocytes 4 Sodium 145 Potassium 3.5 Chloride 117 H Carbon Dioxide 17.8 L Anion Gap 13.7 BUN 57 H Creatinine 2.0 H Est GFR ( Amer) TNP Est GFR (Non-Af Amer) TNP BUN/Creatinine Ratio 28.5 Glucose 102 Calcium 8.3 L Total Bilirubin 0.4 AST 54 H ALT 32 Alkaline Phosphatase 140 H Total Protein 5.7 L Albumin 2.7 L Globulin 3.0 Albumin/Globulin Ratio 0.9 L TSH 06/06/17 06/07/17 06/07/17 05:20 05:15 05:15 WBC 9.6 RBC 3.56 L Hgb 9.8 L Hct 29.5 L MCV 82.7 MCH 27.5 MCHC Differential 33.2 RDW 14.8 Plt Count 130 L MPV 8.9 Neutrophils % 82.6 H Band Neutrophils % Lymphocytes % 7.5 L Monocytes % 7.8 Eosinophils % 1.8 Basophils % 0.3 Neutrophils (Manual) Lymphocytes Monocytes Sodium 150 H 147 H Potassium 3.7 3.3 L Chloride 121 H 119 H Carbon Dioxide 19.8 L 19.2 L Anion Gap 12.9 12.1 BUN 47 H 36 H Creatinine 1.7 H 1.6 H Est GFR ( Amer) TNP TNP Est GFR (Non-Af Amer) TNP TNP BUN/Creatinine Ratio 27.6 22.5 Glucose 123 H 122 H Calcium 8.6 8.2 L Total Bilirubin 0.5 0.4 AST 41 H 23 ALT 34 29 Alkaline Phosphatase 138 H 119 H Total Protein 6.1 5.5 L Albumin 2.9 L 2.6 L Globulin 3.2 2.9 Albumin/Globulin Ratio 0.9 L 0.9 L TSH 06/07/17 05:15 WBC RBC Hgb Hct MCV MCH MCHC Differential RDW Plt Count MPV Neutrophils % Band Neutrophils % Lymphocytes % Monocytes % Eosinophils % Basophils % Neutrophils (Manual) Lymphocytes Monocytes Sodium Potassium Chloride Carbon Dioxide Anion Gap BUN Creatinine Est GFR ( Amer) Est GFR (Non-Af Amer) BUN/Creatinine Ratio Glucose Calcium Total Bilirubin AST ALT Alkaline Phosphatase Total Protein Albumin Globulin Albumin/Globulin Ratio TSH 3.25 Hospital Course: Patient was admmited to Telmetry, she was started in IV fluids, AB, she received bolus IV NS, regular diet, consult with Pulmonology and Cardiology were done and recommendations were follow. Treatment: Bolus IV NS, AB, Regular diet and continue with SNF meds. Condition at Discharge: Stable Disposition: Discharge/Transfered to SNF Home Medications: Home Medication Medication Instructions Recorded Type Acetaminophen [Tylenol 500 mg PO Q6HR PRN 04/27/17 History 650mg/20.3mL Suspension] Apixaban [Eliquis] 2.5 mg PO BID 04/27/17 History Cranberry 400 mg PO DAILY 04/27/17 History Dextran 70/Hypromellose/Pf 1 each OP BID PRN 04/27/17 History [Artificial Tears Drops] Docusate Sodium [Colace] 100 mg PO TID 04/27/17 History Duloxetine HCl [Cymbalta] 20 mg PO HS 04/27/17 History Ferrous Sulfate [Iron] 1 tab PO DAILY 04/27/17 History Levothyroxine [Synthroid] 25 mcg PO QAM 04/27/17 History Multivitamin-Min/Iron/FA/Vit K 1 tab PO DAILY 04/27/17 History [Multi-Day Plus Minerals Tablet] Pramipexole Di-HCl [Mirapex] 0.125 mg PO HS 04/27/17 History Rivastigmine [Exelon] 13.3 mg TD DAILY 04/27/17 History Tolterodine Tartrate [Detrol LA] 4 mg PO DAILY 04/27/17 History Nutritional Supplement [Resource 60 ml PO TID 06/04/17 History 2.0 237 ml] Vit C 500 1 tab PO DAILY 06/04/17 History Inpatient Medications: Current Medications Acetaminophen (Tylenol) 650 mg PO Q6H PRN PRN Reason: fever Stop: 08/03/17 11:30 Last Admin: 06/06/17 11:02 Dose: 650 mg Albuterol/Ipratropium (Duoneb Neb) 3 ml HHN Q8HRT [facility] Stop: 08/03/17 14:59 Last Admin: 06/07/17 06:46 Dose: 3 ml Ascorbic Acid (Vitamin C) 500 mg PO DAILY [facility] Stop: 08/04/17 09:59 Last Admin: 06/06/17 09:17 Dose: 500 mg Docusate Sodium (Colace) 100 mg PO TID [facility] Stop: 08/04/17 08:59 Last Admin: 06/06/17 22:01 Dose: 100 mg Ferrous Sulfate (Iron) 325 mg PO DAILY [facility] Stop: 08/04/17 08:59 Last Admin: 06/06/17 09:17 Dose: 325 mg Ceftriaxone Sodium 1 gm/ (Sodium Chloride) 50 mls @ 100 mls/hr IV Q24H [facility] Stop: 08/04/17 10:59 Last Infusion: 06/06/17 11:30 Dose: Infused Levofloxacin (Levaquin Pb) 250 mg in 50 mls @ 50 mls/hr IV Q24H [facility] Stop: 08/04/17 11:59 Last Infusion: 06/06/17 13:00 Dose: Infused Dextrose (D5w) 1,000 mls @ 75 mls/hr IV .[id number] [facility] Stop: 08/05/17 09:12 Last Infusion: 06/07/17 06:04 Dose: 75 mls/hr Lactobacillus Rhamnosus (Culturelle) 1 each PO DAILY [facility] Stop: 08/04/17 16:59 Last Admin: 06/06/17 09:17 Dose: 1 each Levothyroxine Sodium (Synthroid) 0.025 mg PO QDAC [facility] Stop: 08/04/17 08:59 Last Admin: 06/07/17 06:33 Dose: 0.025 mg Metoprolol Tartrate (Lopressor) 50 mg PO BID [facility] Stop: 08/05/17 10:29 Last Admin: 06/06/17 16:24 Dose: 50 mg Miscellaneous (Apixaban [Eliquis]) 2.5 mg PO BID [facility] Stop: 08/04/17 08:59 Last Admin: 06/05/17 17:06 Dose: Not Given Miscellaneous (Duloxetine Hcl [Cymbalta]) 20 mg PO HS [facility] Stop: 08/04/17 20:59 Miscellaneous (Rivastigmine [Exelon]) 13.3 mg TD DAILY [facility] Stop: 08/04/17 08:59 Last Admin: 06/05/17 10:58 Dose: Not Given Miscellaneous (Probiotic Screen) 1 ea MC PRN PRN PRN Reason: PROTOCOL Stop: 08/04/17 16:39 Mupirocin (Bactroban Oint) 1 appl NS BID [facility] Stop: 06/10/17 09:01 Last Admin: 06/06/17 16:22 Dose: 1 appl Potassium Chloride (Klor-Con) 20 meq PO DAILY [facility] Stop: 08/06/17 08:59 Pramipexole Dihydrochloride (Mirapex) 0.125 mg PO HS [facility] Stop: 08/04/17 20:59 Last Admin: 06/06/17 22:01 Dose: 0.125 mg Rivaroxaban (Xarelto) 10 mg PO DAILY [facility] Stop: 08/05/17 14:29 Last Admin: 06/06/17 15:40 Dose: 10 mg Activity: Bed Rest Discharge Diet: 2 Gram Sodium Consults and Follow-Up: Nohelia Araiza [Primary Care Provider] - Consulting Speciality: Other (PCP)
[2017-06-07] MEDS ORDERED: Potassium Chloride 20 mEq ER Tab PO SCH (10:00)
[2017-06-07] MEDS: Lactobacillus Rhamnosus 10 Billion CFU Capsule PO SCH (10:07)
[2017-06-07] MEDS: Multivitamin w/ Minerals Tab PO SCH (10:07)
[2017-06-07] MEDS: Ferrous Sulfate 325 MG TAB PO SCH (10:15)
[2017-06-07] MEDS: cefTRIAXone 1 GM in 0.9% NS 50 ML IV SCH (11:28)
[2017-06-07] MEDS: Levofloxacin 250 mg/50 mL Premix Bag IV SCH (11:29)
== END 2017-06-07 13:00 | disposition home or self-care (01) | DRG 871 ==
LOC: ER 09:16 → MSI 10:50 → TELE 12:27
PROVIDERS: ADMIT General Practice; ATTEND General Practice
DX: A41.9 Sepsis, unspecified organism (principal); J96.90 Respiratory failure, unspecified, unspecified whether with hypoxia or hypercapnia; N17.9 Acute kidney failure, unspecified; N39.0 Urinary tract infection, site not specified; E86.0 Dehydration; Z66 Do not resuscitate; I25.10 Atherosclerotic heart disease of native coronary artery without angina pectoris; G20 Parkinson's disease; F02.80 Dementia in other diseases classified elsewhere, unspecified severity, without behavioral disturbance, psychotic disturbance, mood disturbance, and anxiety; I12.9 Hypertensive chronic kidney disease with stage 1 through stage 4 chronic kidney disease, or unspecified chronic kidney disease; R73.9 Hyperglycemia, unspecified; E03.9 Hypothyroidism, unspecified; D50.9 Iron deficiency anemia, unspecified; N18.3 Chronic kidney disease, stage 3 (moderate)
CPT/HCPCS: 36415-UA; 71010-TC; 80053-TC; 81001-TC; 82550-TC; 83605; 84443-TC; 84484-TC; 85007-TC; 85025-TC; 85027-TC; 85610-TC; 87086-90; 94640; 94760; J0696; J1956; J7030; J7040; J7042; J7070; Z7610